=== PATIENT | female | born 1990 | race Caucasian/White ===

== ENCOUNTER 2021-05-22 20:05 | Emergency (ER) | payer MEDICAID ==
[2021-05-22] MEDS ORDERED: Ketorolac 60 MG/2 ML SDV IM ONE (20:18)
[2021-05-22] MEDS ORDERED: Orphenadrine 60 MG/2 ML Inj IM ONE (20:18)
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
== END 2021-05-22 20:33 | disposition home or self-care (01) ==
LOC: CC.ED 20:05
DX: M54.5 Low back pain (principal); Z72.0 Tobacco use; Z79.899 Other long term (current) drug therapy
CPT/HCPCS: 96372; 99283; J1885; J2360

== ENCOUNTER 2021-08-23 09:35 | Emergency (ER) | payer OTHER, MEDICAID ==
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
== END 2021-08-23 10:44 | disposition home or self-care (01) ==
LOC: CC.ED 09:35
DX: M54.50 Low back pain, unspecified (principal); V89.2XXA Person injured in unspecified motor-vehicle accident, traffic, initial encounter
CPT/HCPCS: 71045; 72100; 99284-25

== ENCOUNTER → 2022-07-11 | Day surgery (SDC) | payer MEDICAID ==
[~2022-07-11] MED LIST: Lidocaine 1% w/EPINEPHrine 100 ML, Sodium Chloride 0.9% 900 ML, Sodium Bicarbonate 10 MEQ INJECT ONE
[2022-07-11 10:47] VITALS: BP 140/98; PULSE 91
[2022-07-11] MEDS: Lidocaine 1% 30 ML SDV INJECT ONE ×2 (12:02→12:26)
== END ==
LOC: CC.SDS 10:20
PROVIDERS: ATTEND Family Medicine
DX: I83.813 Varicose veins of bilateral lower extremities with pain (principal); F32.A Depression, unspecified; Z79.899 Other long term (current) drug therapy
CPT/HCPCS: A4216